=== PATIENT | male | born 1990 | race Caucasian/White ===

== ENCOUNTER 2020-03-10 21:28 | Emergency (ER) | payer MEDICARE, OTHER ==
[~2020-03-10 21:28] MED LIST: AUGMENTIN 875-1 EACH PO; BENADRYL 50MG C50 MG PO; BENTYL 20MG TAB20 MG PO; EXPECTORANT200 MG PO; IBUPROFEN800 MG PO; LEVAQUIN750 MG PO; OMNICEF 300 MG300 MG PO; PEPCID20 MG PO; PREDNISONE50 MG PO; ZITHROMAX500 MG PO; ZOFRAN4 MG PO
[2020-03-10] MEDS ORDERED: LODINE CAP 300300 MG PO (22:08)
[2020-03-10] MEDS ORDERED: BACTROBAN OINT22 GM TOP (22:08)
== END 2020-03-10 22:24 | disposition home or self-care (01) ==
LOC: ER1 21:28
DX: R21 Rash and other nonspecific skin eruption (principal); F17.210 Nicotine dependence, cigarettes, uncomplicated
CPT/HCPCS: 99283

== ENCOUNTER 2020-03-25 18:02 | Emergency (ER) | payer MEDICARE, OTHER ==
[~2020-03-25 18:02] MED LIST changes: +BACTROBAN OINT22 GM TOP; +LODINE CAP 300300 MG PO
[2020-03-25] MEDS ORDERED: BACTROBAN OINT22 GM EXT (18:29)
== END 2020-03-25 19:59 | disposition home or self-care (01) ==
LOC: ER1 18:02
DX: T23.161A Burn of first degree of back of right hand, initial encounter (principal); T31.0 Burns involving less than 10% of body surface; F17.210 Nicotine dependence, cigarettes, uncomplicated; X08.8XXA Exposure to other specified smoke, fire and flames, initial encounter; Y92.009 Unspecified place in unspecified non-institutional (private) residence as the place of occurrence of the external cause
CPT/HCPCS: 99283

== ENCOUNTER 2020-04-15 20:19 | Emergency (ER) | payer MEDICARE, OTHER ==
[~2020-04-15 20:19] MED LIST changes: +BACTROBAN OINT22 GM EXT
[2020-04-15] MEDS ORDERED: CENTANY30 GM TP (22:28)
[2020-04-15] MEDS ORDERED: BENADRYL 25MG C25 MG PO (22:28)
== END 2020-04-15 22:35 | disposition home or self-care (01) ==
LOC: ER1 20:19
PROVIDERS: Emergency Medicine
DX: L25.9 Unspecified contact dermatitis, unspecified cause (principal); F15.10 Other stimulant abuse, uncomplicated; F17.200 Nicotine dependence, unspecified, uncomplicated
CPT/HCPCS: 80307; 81001; 99283

== ENCOUNTER 2020-04-28 19:06 | Emergency (ER) | payer MEDICARE, OTHER ==
[~2020-04-28 19:06] MED LIST changes: +BENADRYL 25MG C25 MG PO; +CENTANY30 GM TP
== END 2020-04-28 20:55 | disposition home or self-care (01) ==
LOC: ER1 19:06
DX: R10.2 Pelvic and perineal pain (principal); F17.210 Nicotine dependence, cigarettes, uncomplicated
CPT/HCPCS: 99283

== ENCOUNTER 2020-05-11 21:46 | Emergency (ER) | payer MEDICARE, OTHER | END 2020-05-11 23:50 | disposition left against medical advice (07) | LOC: ER1 21:46 | DX: Z53.21 Procedure and treatment not carried out due to patient leaving prior to being seen by health care provider (principal) | CPT/HCPCS: 93005 ==

== ENCOUNTER 2020-06-01 20:31 | Emergency (ER) | payer MEDICARE, OTHER | END 2020-06-01 20:53 | disposition left against medical advice (07) | LOC: ER1 20:31 | DX: Z53.21 Procedure and treatment not carried out due to patient leaving prior to being seen by health care provider (principal) ==

== ENCOUNTER 2020-06-05 01:25 | Emergency (ER) | payer MEDICARE, OTHER ==
[2020-06-05 02:18] LABS: RED BLOOD COUNT 4.96 M/UL (4.20-5.50); WHITE BLOOD COUNT 5.2 K/UL (4.5-11.0)
[2020-06-05 02:42] LABS: BUN/CREATININE RATIO 21 (0-10)
== END 2020-06-05 05:15 | disposition home or self-care (01) ==
LOC: ER1 01:25
PROVIDERS: Physician Assistant
DX: Z77.098 Contact with and (suspected) exposure to other hazardous, chiefly nonmedicinal, chemicals (principal); R21 Rash and other nonspecific skin eruption; Z86.19 Personal history of other infectious and parasitic diseases
CPT/HCPCS: 71045; 80053; 82550; 82553; 83735; 83874; 84439; 84443; 84484; 85025; 93005; 99285